=== PATIENT | male | born 1965 | race Two or more races ===

== ENCOUNTER 2025-01-04 18:40 | Inpatient (IN) | payer MEDICAID, OTHER ==
[~2025-01-04] VITALS: Ht 162.6 cm; Wt 98.2 kg
--- NOTE | 2025-01-04 18:59 | ED.PDOC ---
HPI Comments HPI: Poor Historian. 59-year-old male brought in by ambulance transferred from [facility] for evaluation of NSTEMI. Patient presented to the outside facility for midsternal chest pain radiating to the left upper extremity that started this morning. Patient was found with new onset of atrial fibrillation with RVR heart rate was in the 160s. Patient was given diltiazem 20 mg IV which converted him to normal sinus. Pr transfer physician Dr. VOGEL, she said patient's troponin was 0.05 than 0.13 than 0.26 which is elevated. They are cut off normal is 0.04. They spoke with the issue clerk Dr. Turner who recommended to transfer the patient. Patient was given heparin 5000 units and aspirin prior to arrival. They contacted us and accepted the transfer to our facility. Upon arrival to our facility. Patient was evaluated. He denies any active chest pain or any acute complaints. Past Medical History: Hypertension, gout, new onset atrial fibrillation with RVR earlier today. Past Surgical History: REVIEW OF SYSTEMS: CONSTITUTIONAL: Denies acute: fever, diaphoresis, chills, generalized weakness. HEAD: Denies acute: headache, photophobia Eyes: Denies acute: Double vision, vision loss, eye pain, eye discharge. EARS: Denies acute: tinnitus, hearing loss, ear discharge, ear pain, THROAT: Denies acute: sore throat, swelling, difficulty swallowing , pain with swallowing, change in voice. NECK: Denies acute: neck pain, neck swelling, stiff neck. HEART: Denies acute : palpitations, LUNGS: Denies acute: SOB, wheezing, cough, hemoptysis ABDOMEN: Denies acute: abdominal pain, Nausea, Vomiting, diarrhea, melena , hematemesis, hematochezia SKIN: Denies acute: rash, redness, lesions, itchiness. EXTREMITIES: Denies acute: calf pain, numbness, tingling, weakness, denies pain in extremity. Denies acute: Low back pain. Neuro: Denies acute: focal neurological deficit, motor or sensory focal neurological deficit, tremors, seizure like activity, confusion, dizziness, change in mental status, loss of bowel or bladder function, cauda equina like symptoms. : Denies acute: dysuria, hematuria, flank pain, increase in urinary frequency. PSYCH: Denies acute: hallucination, suicidal ideation, homicidal ideation. PHYSICAL EXAM: General: ---no-----acute distress, awake and alert. Head: normocephalic, atraumatic. Neck: supple, trachea is midline, no swelling. Throat: Normal phonation. Eyes:, no erythema, no purulent discharge, no proptosis, no icterus. Heart: regular rate, regular rhythm, no significant murmur appreciated. Lungs: no apparent respiratory distress, Able to speak in full sentences. No wheezing, no rhonchi, no crackles. No stridors Clear to auscultation bilaterally. Abdomen: non tender to palpation, non distended, soft, no guarding, no rebound, + bowel sounds. Neuro: Awake, Alert, oriented to name, self, situation, follows commands GCS=15. Speech is normal. Skin: no petechia, no purpura, no cyanosis, non-pale, not jaundice. Lower extremities: --trace bilateral - Pitting edema no deformity, no focal swelling, no calf TTP. Makes eye contact. moves all four extremities. Face: no apparent facial droop. ED COURSE: DISCLAIMER: This medical document was created using an electronic medical record system with voice recognition software and computerized dictation system. Although this document has been carefully reviewed, there might still be some phonetic and typographical errors. Occasional wrong-word or "sound-alike" substitutions may have occurred due to the inherent limitations of voice recognition software. These areas are purely typographical due to imperfections of the software programs and do not reflect any compromise in the patient's medical care. Please read the chart carefully and recognize, using context, where these substitutions have occurred. Chief Complaint: Chest Pain Time Seen by MD: 18:46 Reviewed Notes: Allergies Allergies: Coded Allergies: NO KNOWN ALLERGIES (Unverified , 01/04/25) Home Meds Active Scripts Apixaban Base (ELIQUIS) 5 Mg Tab, 5 MG PO BID for 30 Days, #60 TAB 4 Refills Prov:LASHELL NINO DO 01/08/25 Losartan Potassium (Losartan Potassium) 50 Mg Tab, 100 MG PO DAILY for 30 Days, #60 TAB 3 Refills Prov:NINOLASHELL Bañuelos DO 01/08/25 Carvedilol (COREG) 3.125 Mg Tab, 6.25 MG PO Q12HR for 30 Days, #120 TAB 3 Refills Prov:LASHELL NINO DO 01/08/25 Atorvastatin Calcium (ATORVASTATIN CALCIUM) 20 Mg Tab, 20 MG PO HS for 30 Days, #30 TAB 3 Refills Prov:LASHELL NINO DO 01/08/25 Allopurinol (ZYLOPRIM TABLET) 100 Mg Tb, 300 MG PO DAILY for 30 Days, #90 TAB 6 Refills Prov:LASHELL NINO DO 01/08/25 Reported Medications Allopurinol (Allopurinol) 300 Mg Tab, 1 TAB PO DAILY 01/04/25 Atorvastatin Calcium (ATORVASTATIN CALCIUM) 40 Mg Tab, 1 TAB PO DAILY 01/04/25 Aspirin (Aspirin Low Dose) 81 Mg Tab, 1 TAB PO DAILY 01/04/25 Furosemide (Furosemide) 40 Mg Tab, 1 TAB PO DAILY 01/04/25 Losartan Potassium (Losartan Potassium) 100 Mg Tab, 1 TAB PO DAILY 01/04/25 Carvedilol (Carvedilol) 6.25 Mg Tab, 1 TAB PO BID 01/04/25 Information Source: Patient Was a procedure done? Was a procedure done?: No CP Differential Dx Differential Diagnosis: A-fib, A-Flutter, Angina, Digoxin Toxicity, Electrolyte Disorder, Heart Failure, Hyperthyroidism, Hyperventilation, Hypoxia, MAT, WI, PAC's, PSVT, Pulmonary Embolus, PVC's, Renal Failure, Sinus Tachycardia, Torsades De Pointes, Ventricular Dysrhythmia, V-Fib, V-Tach Differential Diagnosis: Other (Ddx include but not limitied to gastritis, musculoskeletal pain, radiculopathy, atypical chest pain, dissection, aneurysm, ACS, unstable angina, hiatal hernia, GERD, anxiety, costochondritis, PE, pneumothroax, neoplasm, cardiac ischemia, drug abuse, anemia.) X-Ray, Labs, Meds, VS Vital Signs Date Time Temp Pulse Resp B/P (MAP) Pulse Ox O2 Delivery O2 Flow Rate FiO2 01/04/25 21:28 85 01/04/25 20:17 86 01/04/25 19:30 Room Air* 0 21 01/04/25 19:30 97.8 85 17 153/93 (113) 95 97.8 01/04/25 18:56 80 01/04/25 18:50 97.3 75 16 169/109 97 97.3 01/04/25 18:45 Room Air* 0 21 01/04/25 18:45 98.0 88 17 147/85 (105) 97 98.0 Lab Test 01/04/25 19:43 01/04/25 18:50 Range/Units Troponin I High Sensitivity 443 *H 447 *H </=54 ng/L White Blood Count 6.3 4.4-10.8 10^3/uL Red Blood Count 5.50 4.5-5.90 10^6/uL Hemoglobin 15.7 13.5-17.5 g/dL Hematocrit 47.1 41.0-53.0 % Mean Corpuscular Volume 85.7 80.0-100.0 fL Mean Corpuscular Hemoglobin 28.6 28.0-32.0 pg Mean Corpuscular Hemoglobin Concent 33.4 32.0-36.0 g/dL Red Cell Distribution Width 14.5 H 11.8-14.3 % Platelet Count 218 140-450 10^3/uL Mean Platelet Volume 8.4 6.9-10.8 fL Neutrophils (%) (Auto) 61.7 37.0-80.0 % Lymphocytes (%) (Auto) 27.6 10.0-50.0 % Monocytes (%) (Auto) 7.6 0.0-12.0 % Eosinophils (%) (Auto) 2.4 0.0-7.0 % Basophils (%) (Auto) 0.7 0.0-2.0 % Neutrophils # (Auto) 3.9 1.6-8.6 10 ^3/uL Lymphocytes # (Auto) 1.7 0.4-5.4 10 ^3/uL Monocytes # (Auto) 0.5 0-1.3 10 ^3/uL Eosinophils # (Auto) 0.2 0-0.8 10 ^3/uL Basophils # (Auto) 0 0-0.2 10 ^3/uL Nucleated Red Blood Cells 0.1 % Sodium Level 142 136-145 mmol/L Potassium Level 4.2 3.5-5.1 mmol/L Chloride Level 105 98-107 mmol/L Carbon Dioxide Level 27 20-31 mmol/L Anion Gap 10 5-15 Blood Urea Nitrogen 17 9-23 mg/dL Creatinine 1.40 H 0.700-1.30 mg/dL Glomerular Filtration Rate Calc 57 >90 mL/min BUN/Creatinine Ratio 12.1 10.0-20.0 Serum Glucose 98 74-106 mg/dL Calcium Level 9.2 8.7-10.4 mg/dL Magnesium Level 2.1 1.6-2.6 mg/dL Total Bilirubin 0.8 0.2-1.0 mg/dL Aspartate Amino Transferase (AST) 24 13-40 U/L Alanine Aminotransferase (ALT) 26 7-40 U/L Alkaline Phosphatase 82 46-116 U/L B-Type Natriuretic Peptide 121.26 0-100 pg/mL Total Protein 7.4 5.7-8.2 g/dL Albumin 4.3 3.2-4.8 g/dL [place] [id number] Ph: [phone] DIAGNOSTIC IMAGING Diagnostic Imaging Report : [id number] Signed PATIENT: MICHAEL MERLOSEACCT: [id number] UNIT: [id number] : 1965 LOC: ER ROOM / BED: / AGE / SEX: 59 / M ADM STATUS: REG ER SERVICE 185 ORDERING PHYSICIAN: RUBEN SKINNER DO PROCEDURE(s): CXRP - CHEST PORTABLE REASON: cp ORDER NUMBER(s): [id number], ACCESSION NUMBER(s): [id number] CHEST RADIOGRAPH Indication: cp Technique: Single frontal view of the chest was obtained Comparison: XR CHEST 1 VIEW on DOS: 01/04/25 FINDINGS: Lines and Tubes: None Lungs: No focal consolidation. Pleura: No effusion. No pneumothorax. Cardiomediastinal contours: Unremarkable Bones: No acute osseous abnormality. IMPRESSION: 1. No acute cardiopulmonary disease. ATED BY: ELDER ENLGISH Jr., DO DICTATED DATE/TIME: 01/04/251923 SIGNED BY: ELDER ENGLISH Jr., DO SIGNED DATE/TIME: 01/04/251923 CC: Time of 1ST Reevaluation: 00:00 Reevaluation 1ST: N/A Patient Education/Counseling: Diagnosis, Treatment Family Education/Counseling: Other Comments MDM: patient presented with the above HPI.---cardiac---workup was initiated. patient was found with the above mentioned diagnosis. the following medications were ordered: please refer to order lists of meds and tests obtained by myself Dr. Skinner. Patient ED course and VS have been stabilized. Patient has been reassessed in the ED and remained in a stable condition. Pertinent incidental findings were discussed with the patient and/or family. Patient/family voices understanding and is agreeable with plan. Patient has been observed in the ED adequate length of time to insure improvement/stability. Escalation of care considered: Consideration of escalation to observation or admission Patient transferred to our facility for NSTEMI and new onset atrial fibrillation.. Cardiology consult was placed. Patient was ADMITTED to the medicine team for further evaluation and treatment of their presentation. All the reports of any imaging studies that were ordered by myself were reviewed by myself. Departure 1 Departure Time of Disposition: 18:56 Impression: Primary Impression: NSTEMI (non-ST elevated myocardial infarction) Additional Impression: New onset atrial fibrillation Disposition: ADMITTED INPATIENT Admit to: Tele Condition: Guarded e-Prescriptions Apixaban Base (ELIQUIS) 5 Mg Tab 5 MG PO BID for 30 Days, #60 TAB 4 Refills Prov: LASHELL NINO DO 01/08/25 Losartan Potassium (Losartan Potassium) 50 Mg Tab 100 MG PO DAILY for 30 Days, #60 TAB 3 Refills Prov: NINOLASHELL Bañuelos DO 01/08/25 Carvedilol (COREG) 3.125 Mg Tab 6.25 MG PO Q12HR for 30 Days, #120 TAB 3 Refills Prov: LASHELL NINO DO 01/08/25 Atorvastatin Calcium (ATORVASTATIN CALCIUM) 20 Mg Tab 20 MG PO HS for 30 Days, #30 TAB 3 Refills Prov: LASHELL NINO DO 01/08/25 Allopurinol (ZYLOPRIM TABLET) 100 Mg Tb 300 MG PO DAILY for 30 Days, #90 TAB 6 Refills Prov: LASHELL NINO DO 01/08/25 Discharged With: Self Critical Care Note Critical Care Time?: Yes (1 hr-critical care time only) Heart Score Heart Score: Heart Score Response (Comments) Value History Moderate Suspicious [address]-Deviation 2 Age 45-64 1 Risk Factors 1 or 2 risk factors 1 Troponin >3 x's Normal limit 2 Total 7 RUBEN SKINNER DO Jan 04, 2025 18:59
[2025-01-04 19:07] LABS: Hematocrit 47.1 % (41.0-53.0); Hemoglobin 15.7 g/dL (13.5-17.5); Mean Corpuscular Hemoglobin 28.6 pg (28.0-32.0); Mean Corpuscular Volume 85.7 fL (80.0-100.0); Nucleated Red Blood Cells % 0.1 %
--- NOTE | 2025-01-04 19:14 | ECG ---
[facility] Test Date: 2025-01-04 Test Time: 18:56:50 Pat Name: MICHAEL MERLOS Department: Room: 0297T Gender: M Practice Administrator: AUDI : 1965 Requested By: RUBEN SKINNER Order Number: [id number] Reading MD: Paul Moore Measurements Intervals [place] Rate: 80 P: 53 AL: 150 QRS: 58 QRSD: 90 T: 59 QT: 385 QTc: 445 Interpretive Statements Sinus rhythm Electronically Signed On 01-11-2025 20:18:11 PDT by Paul Moore Please click the below link to view image of tracing.
[2025-01-04 19:24] LABS: Alanine Aminotransferase 26 U/L (7-40); Albumin 4.3 g/dL (3.2-4.8); Alkaline Phosphatase 82 U/L (46-116); Anion Gap 10 (5-15); BUN/Creatinine Ratio 12.1 (10.0-20.0); Blood Urea Nitrogen 17 mg/dL (9-23); Calcium 9.2 mg/dL (8.7-10.4); Carbon Dioxide 27 mmol/L (20-31); Chloride 105 mmol/L (98-107); Glucose 98 mg/dL (74-106); Magnesium 2.1 mg/dL (1.6-2.6); Potassium 4.2 mmol/L (3.5-5.1); Sodium 142 mmol/L (136-145); Total Protein 7.4 g/dL (5.7-8.2)
[2025-01-04 19:25] LABS: Bilirubin, Total 0.8 mg/dL (0.2-1.0)
--- NOTE | 2025-01-04 19:26 | DVH ---
CHEST RADIOGRAPH Indication: cp Technique: Single frontal view of the chest was obtained Comparison: XR CHEST 1 VIEW on DOS: 01/04/25 FINDINGS: Lines and Tubes: None Lungs: No focal consolidation. Pleura: No effusion. No pneumothorax. Cardiomediastinal contours: Unremarkable Bones: No acute osseous abnormality. IMPRESSION: 1. No acute cardiopulmonary disease.
[2025-01-04] MEDS: ENOXAPARIN SOD 100 MG/1 ML SYRINGE SC ONE (20:33)
--- NOTE | 2025-01-04 21:40 | DVHHP2 ---
History of Present Illness Reason for Visit: NSTEMI (non-ST elevated myocardial infarction) History of Present Illness The patient is a 59-year-old male with past medical history of AFib, gout, and hypertension who presented to [facility] ED from [facility] for evaluation of NSTEMI. Patient presented to the outside facility for midsternal chest pain radiating to the left upper extremity that started this morning. Patient was found with new onset of atrial fibrillation with RVR heart rate in the 160s. Patient was given diltiazem 20 mg IV which converted to normal sinus rhythm. Patient was given heparin 5000 units and aspirin prior to arrival. Patient was seen and evaluated in the ED, laboratory data shows WBC 6.3, platelets 218, sodium 142, potassium 4.2, BUN 17, creatinine 1.40, GFR 57, glucose 98, calcium 9.2, troponin 443, blood pressure 169/109, heart rate 75, temperature 97.4 F, O2 saturation 97% on oxygen. Chest x-ray show no acute cardiopulmonary disease. Please see medication orders section in the computer. On my assessment, patient denied chest pain at this moment, no headache, no dizziness, no diaphoresis, currently on oxygen, no diarrhea, no nausea, no vomiting, no fever, chills. Patient was admitted for further evaluation and medical management. Past Medical History HTN, Gout, AFib Past Surgical History Denies all surgeries Family History Reviewed, noncontributory to the management of this case. Past Social History The patient lives at home, denies smoking, alcohol or illicit drugs abuse. Review of Systems Constitutional: Yes: Weakness; No: Fever, Chills, Sweats, Malaise, Other Eyes: No: Pain, Vision change, Conjunctivae inflammation, Eyelid inflammation, Other, Redness ENT: No: Ear pain, Ear discharge, Nose pain, Nose discharge, Nose congestion, Mouth pain, Mouth swelling, Throat pain, Throat swelling, Other Respiratory: No: Cough, Dry, Shortness of breath, SOB with excertion, Wheezing, Hemoptysis, Pleuritic Pain, Sputum, Wheezing, Other Cardiovascular: No: Chest Pain, Palpitations, Orthopnea, Paroxysmal Noc. Dyspnea, Edema, Lt Headedness, Other Gastrointestinal: No: Nausea, Vomiting, Abdominal Pain, Diarrhea, Constipation, Melena, Hematochezia, Other Genitourinary: No Dysuria, No Frequency, No Incontinence, No Hematuria, No Retention, No Other Musculoskeletal: No: other, neck pain, shoulder pain, arm pain, back pain, hand pain, leg pain, foot pain Skin: No: Rash, Lesions, Jaundice, Bruising, Other Neurological: No: Weakness, Numbness, Incoordination, Change in speech, Confusion, Seizures, Other Allergies: Coded Allergies: NO KNOWN ALLERGIES (Unverified , 01/04/25) Exam Vital Signs Vital Signs Date Time Temp Pulse Resp B/P (MAP) Pulse Ox O2 Delivery O2 Flow Rate FiO2 01/04/25 19:30 Room Air* 0 21 01/04/25 19:30 97.8 85 17 153/93 (113) 95 97.8 General Appearance: Alert, Oriented X3, Cooperative, No acute distress HEENT: Atraumatic, PERRLA, EOMI, Mucous membr. moist/pink Respiratory: Normal air movement Cardiovascular: Regular rate, Normal S1, Normal S2, No murmurs Abdominal: Normal bowel sounds, Soft, No tenderness, No hepatospenomegaly, No masses Extremities: No clubbing, No cyanosis, No edema, Normal pulses, No tenderness/swelling Skin: No rashes, No breakdown, No significant lesion Neuro: Normal speech, Normal tone, Sensation intact, Cranial nerves 3-12 NL, Reflexes 2+, Other (Generalized weakness) Psych/Mental Status: Mental status NL, Mood NL Labs/Xrays Labs Test 01/04/25 19:43 01/04/25 18:50 Range/Units Troponin I High Sensitivity 443 *H </=54 ng/L White Blood Count 6.3 4.4-10.8 10^3/uL Red Blood Count 5.50 4.5-5.90 10^6/uL Hemoglobin 15.7 13.5-17.5 g/dL Hematocrit 47.1 41.0-53.0 % Mean Corpuscular Volume 85.7 80.0-100.0 fL Mean Corpuscular Hemoglobin 28.6 28.0-32.0 pg Mean Corpuscular Hemoglobin Concent 33.4 32.0-36.0 g/dL Red Cell Distribution Width 14.5 H 11.8-14.3 % Platelet Count 218 140-450 10^3/uL Mean Platelet Volume 8.4 6.9-10.8 fL Neutrophils (%) (Auto) 61.7 37.0-80.0 % Lymphocytes (%) (Auto) 27.6 10.0-50.0 % Monocytes (%) (Auto) 7.6 0.0-12.0 % Eosinophils (%) (Auto) 2.4 0.0-7.0 % Basophils (%) (Auto) 0.7 0.0-2.0 % Neutrophils # (Auto) 3.9 1.6-8.6 10 ^3/uL Lymphocytes # (Auto) 1.7 0.4-5.4 10 ^3/uL Monocytes # (Auto) 0.5 0-1.3 10 ^3/uL Eosinophils # (Auto) 0.2 0-0.8 10 ^3/uL Basophils # (Auto) 0 0-0.2 10 ^3/uL Nucleated Red Blood Cells 0.1 % Sodium Level 142 136-145 mmol/L Potassium Level 4.2 3.5-5.1 mmol/L Chloride Level 105 98-107 mmol/L Carbon Dioxide Level 27 20-31 mmol/L Anion Gap 10 5-15 Blood Urea Nitrogen 17 9-23 mg/dL Creatinine 1.40 H 0.700-1.30 mg/dL Glomerular Filtration Rate Calc 57 >90 mL/min BUN/Creatinine Ratio 12.1 10.0-20.0 Serum Glucose 98 74-106 mg/dL Calcium Level 9.2 8.7-10.4 mg/dL Magnesium Level 2.1 1.6-2.6 mg/dL Total Bilirubin 0.8 0.2-1.0 mg/dL Aspartate Amino Transferase (AST) 24 13-40 U/L Alanine Aminotransferase (ALT) 26 7-40 U/L Alkaline Phosphatase 82 46-116 U/L Total Protein 7.4 5.7-8.2 g/dL Albumin 4.3 3.2-4.8 g/dL PATIENT: MICHAEL MERLOSSIMIT: [id number] UNIT: [id number] : 1965 LOC: ER ROOM / BED: / AGE / SEX: 59 / M ADM STATUS: REG ER SERVICE 0110 ORDERING PHYSICIAN: RUBEN SKINNER DO PROCEDURE(s): CXRP - CHEST PORTABLE REASON: cp ORDER NUMBER(s): [id number], ACCESSION NUMBER(s): [id number] CHEST RADIOGRAPH Indication: cp Technique: Single frontal view of the chest was obtained Comparison: XR CHEST 1 VIEW on DOS: 01/04/25 FINDINGS: Lines and Tubes: None Lungs: No focal consolidation. Pleura: No effusion. No pneumothorax. Cardiomediastinal contours: Unremarkable Bones: No acute osseous abnormality. IMPRESSION: 1. No acute cardiopulmonary disease. SEPSIS Sepsis Screen Date sepsis recognized/suspect: Jan 04, 2025 Time Sepsis recognized/suspect: 1929 Recent Procedure: No On Antibiotic Therapy: No Respiratory Rate >20: No Heart Rate >90: No Temp<36 C (96.8 F) or >38.3 C: No SBP <90 or MAP <65 mmHG: No New Acute Mental Status Change: No Is the patient on CPAP, BIPAP,: No Physician Orders Urinalysis (01/04/25 18:45) Mask Design Engineer (01/04/25 ) Chest Portable (01/04/25 18:50) Troponin-I Hs (01/04/25 10:35) Electrocardigram (01/04/25 10:35) Electrocardigram (01/04/25 12:35) * Cardiology Consult (01/04/25 18:56) Enoxaparin Sodium (Lovenox) (01/04/25 22:00) Losartan Tablet (Cozaar Tablet) (01/05/25 10:00) Atorvastatin (Lipitor) (01/04/25 22:00) Carvedilol Tablet (Coreg Tablet) (01/04/25 22:00) B-Type Natriuretic Peptide (01/04/25 21:31) Hydralazine Injection (Apresoline Inject (01/04/25 21:45) Allopurinol Tablet (Zyloprim Tablet) (01/05/25 10:00) Vital Signs Date Time Temp Pulse Resp B/P (MAP) Pulse Ox O2 Delivery O2 Flow Rate FiO2 01/04/25 19:30 Room Air* 0 21 01/04/25 19:30 97.8 85 17 153/93 (113) 95 97.8 01/04/25 18:56 80 01/04/25 18:50 97.3 75 16 169/109 97 97.3 01/04/25 18:45 Room Air* 0 21 01/04/25 18:45 98.0 88 17 147/85 (105) 97 98.0 Laboratory Tests Test 01/04/25 18:50 White Blood Count 6.3 10^3/uL (4.4-10.8) Medications Medications Dose Ordered Sig/Mana Route Start Time Stop Time Status Last Admin Dose Admin Enoxaparin Sodium 100 mg ONCE ONCE SC 01/04/25 20:30 01/04/25 20:31 DC 01/04/25 20:33 100 MG Assessment/Plan Assessment/Plan NSTEMI (non-ST elevated myocardial infarction) New onset atrial fibrillation Generalized weakness Plan 1. Admit to telemetry unit 2. Breathing treatment 3. Pain control management 4. Management of fluids and electrolytes 5. Consultation for Cardiology 6. Diagnostic tests-chest x-ray 7. DVT prophylaxis-on Lovenox 8. Repeat labs CBC, CMP in a.m. 9. Continue with current medical management 10. Treatment plan discussed with patient and RN. Patient verbalized understanding. Plan discussed with: Patient, Other (RN) My Orders Orders - MADHAV GRIFFITHS DNP Procedure Category Date Status Time Enoxaparin Sodium PHA 01/04/25 Verified (Lovenox) 22:00 Losartan Tablet PHA 01/05/25 Verified (Cozaar Tablet) 10:00 Atorvastatin (Lipitor) PHA 01/04/25 Verified 22:00 Carvedilol Tablet PHA 01/04/25 Verified (Coreg Tablet) 22:00 B-Type Natriuretic LAB 01/04/25 Verified Peptide 21:31 Hydralazine Injection PHA 01/04/25 Verified (Apresoline Inject 21:45 Allopurinol Tablet PHA 01/05/25 Verified (Zyloprim Tablet) 10:00 Problem List: (1) NSTEMI (non-ST elevated myocardial infarction) (2) New onset atrial fibrillation (3) Generalized weakness Date of Service: Jan 04, 2025 Billing Provider: MADHAV GRIFFITHS DNP Common Visit Codes: [id number] INP/OBS CARE (HIGH) MADHAV GRIFFITHS DNP Jan 04, 2025 21:40
[2025-01-04] MEDS ORDERED: HYDROcodone-ACET 5/325MG TAB PO PRN (21:45)
[2025-01-04] MEDS ORDERED: NITROGLYCERIN 0.4 MG SL TAB SL PRN (21:45)
[2025-01-04] MEDS ORDERED: DOCUSATE SOD 100 MG CAP PO PRN (21:45)
[2025-01-04] MEDS ORDERED: MORPHINE SULFATE INJ 2 MG/ml SYRG IV PRN ×2 (21:45)
[2025-01-04] MEDS ORDERED: ONDANSETRON HCL 4 MG/2 ML VIAL IV PRN (21:45)
[2025-01-04] MEDS: SODIUM CHLOR 0.9% PF (SALINE LOCK) 10ML VIAL/SYR IV SCH (22:00)
[2025-01-04] MEDS: ATORVASTATIN 20 MG TAB PO SCH (22:37)
[2025-01-04] MEDS: CARVEDILOL 3.125 MG TAB PO SCH (22:37)
--- NOTE | 2025-01-04 23:50 | DVHINCON2 ---
Date of service: Jan 04, 2025 Referring Physician Chandrika Reason for Consultation NSTEMI History of Present Illness This is a 59-year-old male with a PMH of Hypertension, gout, new onset atrial fibrillation with RVR earlier today who was transferred to [facility] from [facility] for evaluation of NSTEMI. Patient presented to the outside facility for midsternal chest pain radiating to the left upper extremity that started this morning. Patient was found with new onset of atrial fibrillation with RVR heart rate was in the 160s. Patient was given diltiazem 20 mg IV which converted him to normal sinus. Per transferring physician Dr. Luz, she said patient's troponin was 0.05 than 0.13 than 0.26 which is elevated. They are cut off normal is 0.04. [facility] spoke with manager camp Dr. Turner who recommended to transfer the patient. Patient was given heparin 5000 units and aspirin prior to arrival. They contacted us and accepted the transfer to our facility. TROP 447, 443, 477. Chest x-ray showed NAD.Patient was admitted to the hospital. I am asked to consult on this patient. Allergies: Coded Allergies: NO KNOWN ALLERGIES (Unverified , 01/04/25) Current Medications Current Medications Medications (Trade) Dose Ordered Sig/Mana Route PRN Reason Start Time Stop Time Status Last Admin Enoxaparin Sodium (Lovenox) 90 mg Q12HR SC 01/05/25 10:00 Losartan Potassium (Cozaar Tablet) 100 mg DAILY PO 01/05/25 10:00 Atorvastatin Calcium (Lipitor) 20 mg HS PO 01/04/25 22:00 01/04/25 22:37 Carvedilol (Coreg Tablet) 6.25 mg Q12HR PO 01/04/25 22:00 01/04/25 22:37 Hydralazine HCl (Apresoline Injection) 10 mg Q6HP PRN IV SBP>150 01/04/25 21:45 Allopurinol (Zyloprim Tablet) 300 mg DAILY PO 01/05/25 10:00 Sodium Chloride (Saline Lock Ns) 10 ml Q8HR IV 01/04/25 22:00 01/04/25 22:00 Acetaminophen/ Hydrocodone Bitart (Julian 5/325MG Tab) 1 tab Q4HP PRN PO MODERATE PAIN (4-6 PAIN SCALE) 01/04/25 21:45 Ondansetron HCl (Zofran) 4 mg Q4HP PRN IV NAUSEA / VOMITING 01/04/25 21:45 Docusate Sodium (Colace Capsule) 100 mg BIDPRN PRN PO FOR CONSTIPATION 01/04/25 21:45 Acetaminophen (Tylenol Tablet) 650 mg Q6HP PRN PO PAIN SCALE 1-3 OR TEMP>100.4 01/04/25 21:45 Morphine Sulfate 2 mg Q4HPRN PRN IV SEVERE PAIN (7-10 PAIN SCALE) 01/04/25 21:45 Nitroglycerin (Ntrostat Sublingual) 0.4 mg Q5MINP PRN SL FOR CHEST PAIN 01/04/25 21:45 Morphine Sulfate 2 mg Q30M PRN IV FOR CHEST PAIN 01/04/25 21:45 Review of Systems CONSTITUTIONAL: Denies acute: fever, diaphoresis, chills, generalized weakness. HEAD: Denies acute: headache, photophobia Eyes: Denies acute: Double vision, vision loss, eye pain, eye discharge. EARS: Denies acute: tinnitus, hearing loss, ear discharge, ear pain, THROAT: Denies acute: sore throat, swelling, difficulty swallowing , pain with swallowing, change in voice. NECK: Denies acute: neck pain, neck swelling, stiff neck. HEART: Denies acute : palpitations, LUNGS: Denies acute: SOB, wheezing, cough, hemoptysis ABDOMEN: Denies acute: abdominal pain, Nausea, Vomiting, diarrhea, melena , hematemesis, hematochezia SKIN: Denies acute: rash, redness, lesions, itchiness. EXTREMITIES: Denies acute: calf pain, numbness, tingling, weakness, denies pain in extremity. Denies acute: Low back pain. Neuro: Denies acute: focal neurological deficit, motor or sensory focal neurological deficit, tremors, seizure like activity, confusion, dizziness, change in mental status, loss of bowel or bladder function, cauda equina like symptoms. : Denies acute: dysuria, hematuria, flank pain, increase in urinary frequency. PSYCH: Denies acute: hallucination, suicidal ideation, homicidal ideation. Vital Signs Vital Signs Date Time Temp Pulse Resp B/P (MAP) Pulse Ox O2 Delivery O2 Flow Rate FiO2 01/04/25 22:37 82 142/84 01/04/25 22:00 15 98 01/04/25 19:30 Room Air* 0 21 01/04/25 19:30 97.8 97.8 Physical Exam GENERAL: Alert and oriented x 3. No acute distress. EYES: PERRL, EOMI. Anicteric. HENT: Moist mucous membranes. LUNGS: Clear to auscultation bilaterally. CARDIOVASCULAR: Regular rate and rhythm. ABDOMEN: Soft, nontender and nondistended. EXTREMITIES: No edema. NEUROLOGIC: No focal neurological deficits. SKIN: Warm, dry. Labs/Diagnostic Data Labs Test 01/04/25 21:49 01/04/25 18:50 Range/Units Troponin I High Sensitivity 477 *H </=54 ng/L White Blood Count 6.3 4.4-10.8 10^3/uL Red Blood Count 5.50 4.5-5.90 10^6/uL Hemoglobin 15.7 13.5-17.5 g/dL Hematocrit 47.1 41.0-53.0 % Mean Corpuscular Volume 85.7 80.0-100.0 fL Mean Corpuscular Hemoglobin 28.6 28.0-32.0 pg Mean Corpuscular Hemoglobin Concent 33.4 32.0-36.0 g/dL Red Cell Distribution Width 14.5 H 11.8-14.3 % Platelet Count 218 140-450 10^3/uL Mean Platelet Volume 8.4 6.9-10.8 fL Neutrophils (%) (Auto) 61.7 37.0-80.0 % Lymphocytes (%) (Auto) 27.6 10.0-50.0 % Monocytes (%) (Auto) 7.6 0.0-12.0 % Eosinophils (%) (Auto) 2.4 0.0-7.0 % Basophils (%) (Auto) 0.7 0.0-2.0 % Neutrophils # (Auto) 3.9 1.6-8.6 10 ^3/uL Lymphocytes # (Auto) 1.7 0.4-5.4 10 ^3/uL Monocytes # (Auto) 0.5 0-1.3 10 ^3/uL Eosinophils # (Auto) 0.2 0-0.8 10 ^3/uL Basophils # (Auto) 0 0-0.2 10 ^3/uL Nucleated Red Blood Cells 0.1 % Sodium Level 142 136-145 mmol/L Potassium Level 4.2 3.5-5.1 mmol/L Chloride Level 105 98-107 mmol/L Carbon Dioxide Level 27 20-31 mmol/L Anion Gap 10 5-15 Blood Urea Nitrogen 17 9-23 mg/dL Creatinine 1.40 H 0.700-1.30 mg/dL Glomerular Filtration Rate Calc 57 >90 mL/min BUN/Creatinine Ratio 12.1 10.0-20.0 Serum Glucose 98 74-106 mg/dL Calcium Level 9.2 8.7-10.4 mg/dL Magnesium Level 2.1 1.6-2.6 mg/dL Total Bilirubin 0.8 0.2-1.0 mg/dL Aspartate Amino Transferase (AST) 24 13-40 U/L Alanine Aminotransferase (ALT) 26 7-40 U/L Alkaline Phosphatase 82 46-116 U/L B-Type Natriuretic Peptide 121.26 0-100 pg/mL Total Protein 7.4 5.7-8.2 g/dL Albumin 4.3 3.2-4.8 g/dL Assessment NSTEMI (non-ST elevated myocardial infarction). New onset atrial fibrillation. Generalized weakness. Plan/Recommendation I agree with your ongoing assessment and care of plan. Trend troponin. Morphine and [place] for pain management. Lipitor. Coreg, Losartan. DVT prophylactics. IV Hydralazine for SBP >150. Nitro SL. Additional plan as per the hospital course. A total of 45 minutes was spent reviewing the patient record, examining the patient, making a diagnostic and therapeutic plan, discussing this plan with medical personnel, following up on diagnostic studies and following the patient for clinical stability excluding any and all procedures. At least 50% of this time was spent in direct, [id number] contact. Plan discussed with: Patient SCOTTIECLARK Bañuelos MD Jan 04, 2025 23:35
[2025-01-04 23:53] VITALS: BP 166/105; PULSE 83; RESP 18; TEMP 97.8; O2SAT 98
[2025-01-04] MEDS ORDERED: ALLO300T2 PO (23:54)
[2025-01-04] MEDS ORDERED: ASPI-325 PO (23:54)
[2025-01-04] MEDS ORDERED: LOSA-535 PO (23:54)
[2025-01-04] MEDS ORDERED: CARV6.2551 PO (23:54)
[2025-01-04] MEDS ORDERED: FURO40TA4 PO (23:54)
[2025-01-04] MEDS ORDERED: ATOR40TA52 PO (23:54)
[2025-01-05] VITALS (8 sets, daily range): BP systolic 136–166; BP diastolic 74–105; PULSE 72–86; RESP 16–18; TEMP 97.8–98.3; O2SAT 97–99
[2025-01-05] MEDS: hydrALAZINE HCL 20 MG/ML VL IV PRN (00:46)
[2025-01-05 07:15] LABS: Urine Protein, UAD Negative (Negative)
[2025-01-05 09:12] LABS: Hematocrit 44.8 % (41.0-53.0); Hemoglobin 15.1 g/dL (13.5-17.5); Mean Corpuscular Hemoglobin 28.7 pg (28.0-32.0); Mean Corpuscular Volume 85.3 fL (80.0-100.0); Nucleated Red Blood Cells % 0.1 %
[2025-01-05 09:28] LABS: Alanine Aminotransferase 27 U/L (7-40); Albumin 4.0 g/dL (3.2-4.8); Alkaline Phosphatase 74 U/L (46-116); Anion Gap 11 (5-15); BUN/Creatinine Ratio 15.8 (10.0-20.0); Bilirubin, Total 0.8 mg/dL (0.2-1.0); Blood Urea Nitrogen 21 mg/dL (9-23); Calcium 9.0 mg/dL (8.7-10.4); Carbon Dioxide 27 mmol/L (20-31); Chloride 106 mmol/L (98-107); Glucose 92 mg/dL (74-106); Potassium 3.9 mmol/L (3.5-5.1); Sodium 144 mmol/L (136-145); Total Protein 7.0 g/dL (5.7-8.2)
[2025-01-05] MEDS: ALLOPURINOL 100 MG TAB PO SCH (10:21)
[2025-01-05] MEDS: LOSARTAN POTASSIUM 50 MG TAB PO SCH (10:21)
[2025-01-05] MEDS: ENOXAPARIN SOD 100 MG/1 ML SYRINGE SC SCH (10:25)
--- NOTE | 2025-01-05 13:51 | ECG ---
[facility] Test Date: 2025-01-04 Test Time: 21:28:17 Pat Name: MICHAEL MERLOS Department: Room: 0297T A Gender: M Deicer Finisher: AUDI : 1965 Requested By: RUBEN SKINNER Order Number: [id number] Reading MD: Paul Moore Measurements Intervals [place] Rate: 85 P: 50 NC: 157 QRS: 71 QRSD: 93 T: 25 QT: 383 QTc: 456 Interpretive Statements Sinus rhythm Electronically Signed On 01-11-2025 20:19:00 PDT by Paul Moore Please click the below link to view image of tracing.
--- NOTE | 2025-01-05 16:53 | CONS ---
Pharmacy Clinical Information: PATIENT PREVIOUSLY ON ENOXAPARIN 90MG SC BID, LAST DOSE 01/05 APPROX. 1000 STAT APTT/CBC ORDERED, WILL SERVE BASELINE LABS INITIATE HEPARIN DRIP 01/05 @2000 AT RATE 1000 UNITS/HR (ACS PROTOCOL, PT WEIGHT 98.2KG), NO BOLUS DUE TO PRIOR ENOXAPARIN ANTICOAGULATION APTT DRAW SCHEDULED FOR 01/06 @0200 PER RX PROTOCOL JAKY GUERNI PHARMACIST Jan 05, 2025 16:53
[2025-01-05 17:01] LABS: Hematocrit 43.8 % (41.0-53.0); Hemoglobin 14.8 g/dL (13.5-17.5); Mean Corpuscular Hemoglobin 29.0 pg (28.0-32.0); Mean Corpuscular Volume 85.7 fL (80.0-100.0); Nucleated Red Blood Cells % 0.1 %
[2025-01-05 17:17] LABS: INR 1.01 (0.9-1.15); Partial Thromboplastin Time 33.9 SEC (24.5-34.5); Prothrombin Time 10.7 sec (9.3-11.8)
[2025-01-05] MEDS: HEPARIN DRIP/D5W 100UNITS/ML 250 ML IV SCH (20:35)
[2025-01-06] VITALS (10 sets, daily range): BP systolic 139–163; BP diastolic 92–111; PULSE 67–82; RESP 17–18; TEMP 97.8–98.4; O2SAT 96–98
--- NOTE | 2025-01-06 00:05 | DVHPN2 ---
Progress Note - Dictate Date Seen: Jan 05, 2025 Medical Necessity Reason Pt with a Central, PICC or Fol: No Subjective Patient was seen and evaluated in follow up. Patient is complaining of generalized pain. The patient is on heparin drip. Lumber Loader 1.33, troponin 435. Telemetry reviewed. vital signs Vital Sign Date Time Temp Pulse Resp B/P (MAP) Pulse Ox O2 Delivery O2 Flow Rate FiO2 01/05/25 13:00 97.8 82 17 142/95 (111) 98 97.8 01/04/25 23:53 Room Air* 0 21 Total Intake and Output 01/04/25 01/04/25 01/05/25 15:00 23:00 07:00 Intake Total 800 ml Balance 800 ml medications Current Medications Medications Dose Ordered Sig/Mana Route Start Time Stop Time Status Last Admin Dose Admin Enoxaparin Sodium 90 mg Q12HR SC 01/05/25 10:00 01/05/25 10:25 90 MG Losartan Potassium 100 mg DAILY PO 01/05/25 10:00 01/05/25 10:21 100 MG Atorvastatin Calcium 20 mg HS PO 01/04/25 22:00 01/04/25 22:37 20 MG Carvedilol 6.25 mg Q12HR PO 01/04/25 22:00 01/05/25 10:22 6.25 MG Hydralazine HCl 10 mg Q6HP PRN IV 01/04/25 21:45 01/05/25 00:46 10 MG Allopurinol 300 mg DAILY PO 01/05/25 10:00 01/05/25 10:21 300 MG Sodium Chloride 10 ml Q8HR IV 01/04/25 22:00 01/05/25 05:47 10 ML Acetaminophen/ Hydrocodone Bitart 1 tab Q4HP PRN PO 01/04/25 21:45 Ondansetron HCl 4 mg Q4HP PRN IV 01/04/25 21:45 Docusate Sodium 100 mg BIDPRN PRN PO 01/04/25 21:45 Acetaminophen 650 mg Q6HP PRN PO 01/04/25 21:45 Morphine Sulfate 2 mg Q4HPRN PRN IV 01/04/25 21:45 Nitroglycerin 0.4 mg Q5MINP PRN SL 01/04/25 21:45 Morphine Sulfate 2 mg Q30M PRN IV 01/04/25 21:45 objective GENERAL: Alert and oriented x 3. No acute distress. EYES: PERRL, EOMI. Anicteric. HENT: Moist mucous membranes. LUNGS: Clear to auscultation bilaterally. CARDIOVASCULAR: Regular rate and rhythm. ABDOMEN: Soft, nontender and nondistended. EXTREMITIES: No edema. NEUROLOGIC: No focal neurological deficits. SKIN: Warm, dry. laboratory and microbiology Laboratory Tests 01/05/25 06:55 Test 01/05/25 06:55 Range/Units Serum Glucose 92 74-106 mg/dL Problem List NSTEMI (non-ST elevated myocardial infarction). New onset atrial fibrillation. Generalized weakness. Assessment/Plan Continued all current supportive medical care. Morphine and [place] for pain management. Lipitor. Coreg, Losartan. Heparin drip per pharmacy. IV Hydralazine for SBP >150. Nitro SL. Additional plan as per the hospital course. Plan discussed with: Patient CLARK RUBIN MD Jan 05, 2025 14:33
[2025-01-06] MEDS: MELATONIN 5 MG TAB PO SCH (02:12)
[2025-01-06 02:19] LABS: Hematocrit 45.3 % (41.0-53.0); Hemoglobin 15.2 g/dL (13.5-17.5); Mean Corpuscular Hemoglobin 29.0 pg (28.0-32.0); Mean Corpuscular Volume 86.4 fL (80.0-100.0); Nucleated Red Blood Cells % 0.1 %
[2025-01-06 02:31] LABS: INR 1.03 (0.9-1.15); Partial Thromboplastin Time 47.4 SEC (24.5-34.5); Prothrombin Time 10.9 sec (9.3-11.8)
[2025-01-06] MEDS: HEPARIN DRIP/D5W 100UNITS/ML 250 ML IV SCH (02:59)
[2025-01-06] MEDS: ACETAMINOPHEN 325 MG TAB PO PRN (09:07)
--- NOTE | 2025-01-06 10:02 | ECG ---
[facility] Test Date: 2025-01-04 Test Time: 20:17:36 Pat Name: MICHAEL MERLOS Department: Room: 0297T A Gender: M Physician Practice Manager: : 1965 Requested By: RUBEN SKINNER Order Number: [id number] Reading MD: Paul Moore Measurements Intervals [place] Rate: 86 P: 62 AR: 151 QRS: 57 QRSD: 89 T: 79 QT: 380 QTc: 455 Interpretive Statements Sinus rhythm Electronically Signed On 01-11-2025 20:18:41 PDT by Paul Moore Please click the below link to view image of tracing.
[2025-01-06 11:18] LABS: INR 1.03 (0.9-1.15); Partial Thromboplastin Time 63.4 SEC (24.5-34.5); Prothrombin Time 10.9 sec (9.3-11.8)
--- NOTE | 2025-01-06 11:29 | CONS ---
Pharmacy Clinical Information: HEPARIN DRIP, ACS PROTOCOL @1025 APTT 63.4 - NO BOLUS, NO CHANGE NEXT APTT DRAW SCHEDULED @1600 PER RX PROTOCOL CONFIRMED AND READ BACK WITH RN RAGHAV GUO [facility] RESIDENT Jan 06, 2025 11:29
[2025-01-06 16:34] LABS: INR 1.01 (0.9-1.15); Partial Thromboplastin Time 60.1 SEC (24.5-34.5); Prothrombin Time 10.7 sec (9.3-11.8)
--- NOTE | 2025-01-06 16:55 | CONS ---
Pharmacy Clinical Information: HEPARIN DRIP, ACS PROTOCOL @3377 APTT 60.1 - NO BOLUS, NO CHANGE NEXT APTT DRAW SCHEDULED @2200 PER RX PROTOCOL CONFIRMED AND READ BACK WITH RN RAGHAV GUO [facility] RESIDENT Jan 06, 2025 16:55
--- NOTE | 2025-01-06 21:21 | DVHPN2 ---
Reviewed: Care Plan, H&P, Labs, Medications, Previous Orders, Radiology Changes from previous H/P or p: No Changes General: Per HPI Eyes: No Pain, No Vision change, No Conjunctivae inflammation, No Eyelid inflammation, No Other, No Redness ENT: No Ear pain, No Ear discharge, No Nose pain, No Nose discharge, No Nose congestion, No Mouth pain, No Mouth swelling, No Throat pain, No Throat swelling, No Other Cardiovascular: No Chest Pain, No Palpitations, No Orthopnea, No Paroxysmal Noc. Dyspnea, No Edema, No Lt Headedness, No Other Respiratory: No Cough, No Dry, No Shortness of breath, No SOB with excertion, No Wheezing, No Hemoptysis, No Pleuritic Pain, No Sputum, No Other Gastrointestinal: No Nausea, No Vomiting, No Abdominal Pain, No Diarrhea, No Constipation, No Melena, No Hematochezia, No Other Genitourinary: No Dysuria, No Frequency, No Incontinence, No Hematuria, No Retention, No Other Musculoskeletal: No other, No neck pain, No shoulder pain, No arm pain, No back pain, No hand pain, No leg pain, No foot pain Skin: No Rash, No Lesions, No Jaundice, No Bruising, No Other Objective Vitals Vital Signs Date Time Temp Pulse Resp B/P (MAP) Pulse Ox O2 Delivery O2 Flow Rate FiO2 01/06/25 21:00 98.3 69 18 163/111 (128) 98 98.3 01/06/25 19:55 Room Air* 0 21 Intake/Output Intake and Output 01/06/25 07:00 Intake Total 1325 ml Balance 1325 ml Intake Oral 1325 ml # Voids 4 # Bowel Movements 1 General Appearance: Alert, Oriented X3, Cooperative HEENT: Atraumatic Cardiovascular: Normal S1, Normal S2 Neuro: Normal speech Medications Current Medications Medications Dose Ordered Sig/Mana Route Start Time Stop Time Status Last Admin Dose Admin Enoxaparin Sodium 90 mg Q12HR SC 01/05/25 10:00 Hold 01/05/25 10:25 90 MG Losartan Potassium 100 mg DAILY PO 01/05/25 10:00 01/06/25 09:03 100 MG Atorvastatin Calcium 20 mg HS PO 01/04/25 22:00 01/05/25 21:20 20 MG Carvedilol 6.25 mg Q12HR PO 01/04/25 22:00 01/06/25 09:01 6.25 MG Hydralazine HCl 10 mg Q6HP PRN IV 01/04/25 21:45 01/06/25 00:46 10 MG Allopurinol 300 mg DAILY PO 01/05/25 10:00 01/06/25 09:01 300 MG Sodium Chloride 10 ml Q8HR IV 01/04/25 22:00 01/06/25 14:28 10 ML Acetaminophen/ Hydrocodone Bitart 1 tab Q4HP PRN PO 01/04/25 21:45 Ondansetron HCl 4 mg Q4HP PRN IV 01/04/25 21:45 Docusate Sodium 100 mg BIDPRN PRN PO 01/04/25 21:45 Acetaminophen 650 mg Q6HP PRN PO 01/04/25 21:45 01/06/25 09:07 650 MG Morphine Sulfate 2 mg Q4HPRN PRN IV 01/04/25 21:45 Nitroglycerin 0.4 mg Q5MINP PRN SL 01/04/25 21:45 Morphine Sulfate 2 mg Q30M PRN IV 01/04/25 21:45 Melatonin 5 mg HS PO 01/06/25 02:00 01/06/25 02:12 5 MG Heparin Sodium/ Dextrose 250 ml @ 12 mls/hr [id number] IV 01/06/25 03:00 01/06/25 17:53 12 MLS/HR Laboratory Results Laboratory Tests 01/05/25 06:55 01/06/25 01:56 Coagulation Test 01/06/25 01:56 01/06/25 10:25 01/06/25 15:55 Prothrombin Time 10.9 sec (9.3-11.8) 10.9 sec (9.3-11.8) 10.7 sec (9.3-11.8) Prothrombin Time INR 1.03 (0.9-1.15) 1.03 (0.9-1.15) 1.01 (0.9-1.15) Activated Partial Thromboplast Time 47.4 SEC (24.5-34.5) H 63.4 SEC (24.5-34.5) H 60.1 SEC (24.5-34.5) H Urinalysis Test 01/05/25 06:28 Urine Color Light-yellow (Yellow) Urine Clarity Hazy (Clear) H Urine pH 5.5 (5.0-9.0) Urine Specific [place] 1.018 (1.001-1.035) Urine Protein Negative (Negative) Urine Ketones Negative (Negative) Urine Blood Negative /uL (Negative) Urine Nitrite Negative (Negative) Urine Bilirubin Negative (Negative) Urine Urobilinogen Normal mg/dL (Negative) Urine Leukocyte Esterase 3+ /uL (Negative) Urine RBC 4 /hpf (0 - 3) Urine Microscopic WBC 51 /HPF (0-3) H Urine Squamous Epithelial Cells Few /hpf (<5) Urine Bacteria Few /hpf (None Seen) H Urine Glucose Normal mg/dL (Normal) Microbiology Microbiology Date/Time Source Procedure Growth Status 01/05/25 01:15 Nose MRSA Screen - Final Complete Labs and/or images reviewed: Labs reviewed by me, Image(s) reviewed by me Assessment/Plan Assessment/Plan NSTEMI (non-ST elevated myocardial infarction) New onset atrial fibrillation Generalized weakness started on heparin drip cardiology on consult Plan discussed with: Patient My Orders Orders - LASHELL NINO DO Procedure Category Date Status Time Heparin Drip/D5w PHA 01/06/25 In Process 100units/Ml 03:00 Complete Blood Count LAB 01/07/25 Verified 04:00 Heparin Per Pharmacy [facility]EN[facility] 01/06/25 In Process Protocol 11:29 PTPTT LAB 01/06/25 Logged 22:00 Heparin Per Pharmacy [facility] 01/06/25 In Process Protocol 16:55 Date of Service: Jan 05, 2025 Billing Provider: LASHELL NINO DO Common Visit Codes: [id number] INP/OBS CARE(HIGH) LASHELL NINO DO Jan 06, 2025 21:21
--- NOTE | 2025-01-06 21:35 | DVHPN2 ---
Reviewed: Care Plan, H&P, Labs, Medications, Previous Orders, Radiology Changes from previous H/P or p: No Changes General: Per HPI Eyes: No Pain, No Vision change, No Conjunctivae inflammation, No Eyelid inflammation, No Other, No Redness ENT: No Ear pain, No Ear discharge, No Nose pain, No Nose discharge, No Nose congestion, No Mouth pain, No Mouth swelling, No Throat pain, No Throat swelling, No Other Cardiovascular: No Chest Pain, No Palpitations, No Orthopnea, No Paroxysmal Noc. Dyspnea, No Edema, No Lt Headedness, No Other Respiratory: No Cough, No Dry, No Shortness of breath, No SOB with excertion, No Wheezing, No Hemoptysis, No Pleuritic Pain, No Sputum, No Other Gastrointestinal: No Nausea, No Vomiting, No Abdominal Pain, No Diarrhea, No Constipation, No Melena, No Hematochezia, No Other Genitourinary: No Dysuria, No Frequency, No Incontinence, No Hematuria, No Retention, No Other Musculoskeletal: No other, No neck pain, No shoulder pain, No arm pain, No back pain, No hand pain, No leg pain, No foot pain Skin: No Rash, No Lesions, No Jaundice, No Bruising, No Other Objective Vitals Vital Signs Date Time Temp Pulse Resp B/P (MAP) Pulse Ox O2 Delivery O2 Flow Rate FiO2 01/06/25 21:00 98.3 69 18 163/111 (128) 98 98.3 01/06/25 19:55 Room Air* 0 21 Intake/Output Intake and Output 01/06/25 07:00 Intake Total 1325 ml Balance 1325 ml Intake Oral 1325 ml # Voids 4 # Bowel Movements 1 General Appearance: Alert, Oriented X3, Cooperative HEENT: Atraumatic Cardiovascular: Normal S1, Normal S2 Neuro: Normal speech Medications Current Medications Medications Dose Ordered Sig/Mana Route Start Time Stop Time Status Last Admin Dose Admin Enoxaparin Sodium 90 mg Q12HR SC 01/05/25 10:00 Hold 01/05/25 10:25 90 MG Losartan Potassium 100 mg DAILY PO 01/05/25 10:00 01/06/25 09:03 100 MG Atorvastatin Calcium 20 mg HS PO 01/04/25 22:00 01/05/25 21:20 20 MG Carvedilol 6.25 mg Q12HR PO 01/04/25 22:00 01/06/25 09:01 6.25 MG Hydralazine HCl 10 mg Q6HP PRN IV 01/04/25 21:45 01/06/25 00:46 10 MG Allopurinol 300 mg DAILY PO 01/05/25 10:00 01/06/25 09:01 300 MG Sodium Chloride 10 ml Q8HR IV 01/04/25 22:00 01/06/25 14:28 10 ML Acetaminophen/ Hydrocodone Bitart 1 tab Q4HP PRN PO 01/04/25 21:45 Ondansetron HCl 4 mg Q4HP PRN IV 01/04/25 21:45 Docusate Sodium 100 mg BIDPRN PRN PO 01/04/25 21:45 Acetaminophen 650 mg Q6HP PRN PO 01/04/25 21:45 01/06/25 09:07 650 MG Morphine Sulfate 2 mg Q4HPRN PRN IV 01/04/25 21:45 Nitroglycerin 0.4 mg Q5MINP PRN SL 01/04/25 21:45 Morphine Sulfate 2 mg Q30M PRN IV 01/04/25 21:45 Melatonin 5 mg HS PO 01/06/25 02:00 01/06/25 02:12 5 MG Heparin Sodium/ Dextrose 250 ml @ 12 mls/hr [id number] IV 01/06/25 03:00 01/06/25 17:53 12 MLS/HR Laboratory Results Laboratory Tests 01/05/25 06:55 01/06/25 01:56 Coagulation Test 01/06/25 01:56 01/06/25 10:25 01/06/25 15:55 Prothrombin Time 10.9 sec (9.3-11.8) 10.9 sec (9.3-11.8) 10.7 sec (9.3-11.8) Prothrombin Time INR 1.03 (0.9-1.15) 1.03 (0.9-1.15) 1.01 (0.9-1.15) Activated Partial Thromboplast Time 47.4 SEC (24.5-34.5) H 63.4 SEC (24.5-34.5) H 60.1 SEC (24.5-34.5) H Urinalysis Test 01/05/25 06:28 Urine Color Light-yellow (Yellow) Urine Clarity Hazy (Clear) H Urine pH 5.5 (5.0-9.0) Urine Specific [place] 1.018 (1.001-1.035) Urine Protein Negative (Negative) Urine Ketones Negative (Negative) Urine Blood Negative /uL (Negative) Urine Nitrite Negative (Negative) Urine Bilirubin Negative (Negative) Urine Urobilinogen Normal mg/dL (Negative) Urine Leukocyte Esterase 3+ /uL (Negative) Urine RBC 4 /hpf (0 - 3) Urine Microscopic WBC 51 /HPF (0-3) H Urine Squamous Epithelial Cells Few /hpf (<5) Urine Bacteria Few /hpf (None Seen) H Urine Glucose Normal mg/dL (Normal) Microbiology Microbiology Date/Time Source Procedure Growth Status 01/05/25 01:15 Nose MRSA Screen - Final Complete Labs and/or images reviewed: Labs reviewed by me, Image(s) reviewed by me Assessment/Plan Assessment/Plan The patient is a 59-year-old male with past medical history of AFib, gout, and hypertension who presented to [facility] ED from [facility] for evaluation of NSTEMI. Patient presented to the outside facility for midsternal chest pain radiating to the left upper extremity that started this morning. Patient was found with new onset of atrial fibrillation with RVR heart rate in the 160s. Patient was given diltiazem 20 mg IV which converted to normal sinus rhythm. Patient was given heparin 5000 units and aspirin prior to arrival. Patient was seen and evaluated in the ED, laboratory data shows WBC 6.3, platelets 218, sodium 142, potassium 4.2, BUN 17, creatinine 1.40, GFR 57, glucose 98, calcium 9.2, troponin 443, blood pressure 169/109, heart rate 75, temperature 97.4 F, O2 saturation 97% on oxygen. Chest x-ray show no acute cardiopulmonary disease. Please see medication orders section in the computer. NSTEMI (non-ST elevated myocardial infarction) New onset atrial fibrillation Generalized weakness chest pain HTN gout started on heparin drip cardiology on consult Plan discussed with: Patient My Orders Orders - LASHELL NINO DO Procedure Category Date Status Time Heparin Drip/D5w PHA 01/06/25 In Process 100units/Ml 03:00 Complete Blood Count LAB 01/07/25 Verified 04:00 Heparin Per Pharmacy [facility] 01/06/25 In Process Protocol 11:29 PTPTT LAB 01/06/25 Logged 22:00 Heparin Per Pharmacy [facility] 01/06/25 In Process Protocol 16:55 Date of Service: Jan 06, 2025 Billing Provider: LASHELL NINO DO Common Visit Codes: [id number] INP/OBS CARE(HIGH) LASHELL NINO DO Jan 06, 2025 21:34
[2025-01-06 23:08] LABS: INR 1.0 (0.9-1.15); Partial Thromboplastin Time 56.8 SEC (24.5-34.5); Prothrombin Time 10.6 sec (9.3-11.8)
--- NOTE | 2025-01-06 23:39 | DVHPN2 ---
Progress Note - Dictate Date Seen: Jan 06, 2025 Medical Necessity Reason Pt with a Central, PICC or Fol: No Subjective Patient was seen and evaluated in follow up. No overnight events. Patient remains on heparin drip. Telemetry reviewed. vital signs Vital Sign Date Time Temp Pulse Resp B/P (MAP) Pulse Ox O2 Delivery O2 Flow Rate FiO2 01/06/25 21:43 163/111 01/06/25 21:00 98.3 69 18 98 98.3 01/06/25 19:55 Room Air* 0 21 Total Intake and Output 01/05/25 01/05/25 01/06/25 15:00 23:00 07:00 Intake Total 625 ml 700 ml Balance 625 ml 700 ml medications Current Medications Medications Dose Ordered Sig/Mana Route Start Time Stop Time Status Last Admin Dose Admin Enoxaparin Sodium 90 mg Q12HR SC 01/05/25 10:00 Hold 01/05/25 10:25 90 MG Losartan Potassium 100 mg DAILY PO 01/05/25 10:00 01/06/25 09:03 100 MG Atorvastatin Calcium 20 mg HS PO 01/04/25 22:00 01/06/25 21:44 20 MG Carvedilol 6.25 mg Q12HR PO 01/04/25 22:00 01/06/25 09:01 6.25 MG Hydralazine HCl 10 mg Q6HP PRN IV 01/04/25 21:45 01/06/25 21:43 10 MG Allopurinol 300 mg DAILY PO 01/05/25 10:00 01/06/25 09:01 300 MG Sodium Chloride 10 ml Q8HR IV 01/04/25 22:00 01/06/25 21:44 10 ML Acetaminophen/ Hydrocodone Bitart 1 tab Q4HP PRN PO 01/04/25 21:45 Ondansetron HCl 4 mg Q4HP PRN IV 01/04/25 21:45 Docusate Sodium 100 mg BIDPRN PRN PO 01/04/25 21:45 Acetaminophen 650 mg Q6HP PRN PO 01/04/25 21:45 01/06/25 09:07 650 MG Morphine Sulfate 2 mg Q4HPRN PRN IV 01/04/25 21:45 Nitroglycerin 0.4 mg Q5MINP PRN SL 01/04/25 21:45 Morphine Sulfate 2 mg Q30M PRN IV 01/04/25 21:45 Melatonin 5 mg HS PO 01/06/25 02:00 01/06/25 21:44 5 MG Heparin Sodium/ Dextrose 250 ml @ 12 mls/hr [id number] IV 01/06/25 03:00 01/06/25 17:53 12 MLS/HR objective GENERAL: Alert and oriented x 3. No acute distress. EYES: PERRL, EOMI. Anicteric. HENT: Moist mucous membranes. LUNGS: Clear to auscultation bilaterally. CARDIOVASCULAR: Regular rate and rhythm. ABDOMEN: Soft, nontender and nondistended. EXTREMITIES: No edema. NEUROLOGIC: No focal neurological deficits. SKIN: Warm, dry. laboratory and microbiology Laboratory Tests 01/06/25 01:56 01/05/25 06:55 Test 01/05/25 06:55 Range/Units Serum Glucose 92 74-106 mg/dL Problem List NSTEMI (non-ST elevated myocardial infarction). New onset atrial fibrillation. Generalized weakness. Assessment/Plan Continued all current supportive medical care. Morphine and [place] for pain management. Lipitor. Coreg, Losartan. Heparin drip per pharmacy. IV Hydralazine for SBP >150. Nitro SL. Additional plan as per the hospital course. Plan discussed with: Patient CLARK RUBIN MD Jan 06, 2025 23:39
[2025-01-07] VITALS (9 sets, daily range): BP systolic 129–159; BP diastolic 85–101; PULSE 65–94; RESP 18; TEMP 97.7–98.3; O2SAT 95–98
[2025-01-07 06:50] LABS: Hematocrit 45.6 % (41.0-53.0); Hemoglobin 15.6 g/dL (13.5-17.5); Mean Corpuscular Hemoglobin 29.4 pg (28.0-32.0); Mean Corpuscular Volume 86.2 fL (80.0-100.0); Nucleated Red Blood Cells % 0.1 %
[2025-01-07 09:03] LABS: Hematocrit 46.7 % (41.0-53.0); Hemoglobin 15.7 g/dL (13.5-17.5); Mean Corpuscular Hemoglobin 28.9 pg (28.0-32.0); Mean Corpuscular Volume 86.0 fL (80.0-100.0); Nucleated Red Blood Cells % 0.1 %
[2025-01-07 09:21] LABS: INR 1.07 (0.9-1.15); Partial Thromboplastin Time 63.4 SEC (24.5-34.5); Prothrombin Time 11.3 sec (9.3-11.8)
--- NOTE | 2025-01-07 10:27 | CONS ---
Pharmacy Clinical Information: HEPARIN DRIP, ACS PROTOCOL @0838 APTT 63.4 - NO BOLUS / NO CHANGE, CONTINUE HEPARIN DRIP AT RATE 1200 UNITS/HR 3 CONSECUTIVE APTT THERAPEUTIC => APTT EVERY 24 HRS NEXT APTT DRAW SCHEDULED @0500 PER RX PROTOCOL CONFIRMED AND READ BACK WITH THOMAS DUMONT [facility] RESIDENT Jan 07, 2025 10:27
--- NOTE | 2025-01-07 16:24 | DVHPN2 ---
Consult Progress Note Subjective Other Systems: Patient denies any chest pain at time of assessment. Patient remains in normal sinus rhythm on laboratory monitor. Objective vital signs Vital Sign Date Time Temp Pulse Resp B/P (MAP) Pulse Ox O2 Delivery O2 Flow Rate FiO2 01/07/25 10:26 159/99 01/07/25 10:25 79 01/07/25 08:42 98.3 18 97 98.3 01/07/25 08:27 Room Air* 0 21 Total Intake and Output 01/06/25 01/06/25 01/07/25 15:00 23:00 07:00 Intake Total 725 ml 600 ml Output Total 1200 ml Balance -475 ml 600 ml medications Current Medications Medications Dose Ordered Sig/Mana Route Start Time Stop Time Status Last Admin Dose Admin Enoxaparin Sodium 90 mg Q12HR SC 01/05/25 10:00 Hold 01/05/25 10:25 90 MG Losartan Potassium 100 mg DAILY PO 01/05/25 10:00 01/07/25 10:26 100 MG Atorvastatin Calcium 20 mg HS PO 01/04/25 22:00 01/06/25 21:44 20 MG Carvedilol 6.25 mg Q12HR PO 01/04/25 22:00 01/07/25 10:25 6.25 MG Hydralazine HCl 10 mg Q6HP PRN IV 01/04/25 21:45 01/06/25 21:43 10 MG Allopurinol 300 mg DAILY PO 01/05/25 10:00 01/07/25 10:26 300 MG Sodium Chloride 10 ml Q8HR IV 01/04/25 22:00 01/07/25 04:53 10 ML Acetaminophen/ Hydrocodone Bitart 1 tab Q4HP PRN PO 01/04/25 21:45 Ondansetron HCl 4 mg Q4HP PRN IV 01/04/25 21:45 Docusate Sodium 100 mg BIDPRN PRN PO 01/04/25 21:45 Acetaminophen 650 mg Q6HP PRN PO 01/04/25 21:45 01/06/25 09:07 650 MG Morphine Sulfate 2 mg Q4HPRN PRN IV 01/04/25 21:45 Nitroglycerin 0.4 mg Q5MINP PRN SL 01/04/25 21:45 Morphine Sulfate 2 mg Q30M PRN IV 01/04/25 21:45 Melatonin 5 mg HS PO 01/06/25 02:00 01/06/25 21:44 5 MG Heparin Sodium/ Dextrose 250 ml @ 12 mls/hr [id number] IV 01/06/25 03:00 01/06/25 17:53 12 MLS/HR Examination: GENERAL:Normal, LUNGS:Normal, CVS:Normal, NEURO:Normal laboratory and microbiology Laboratory Tests 01/07/25 08:38 01/05/25 06:55 Test 01/05/25 06:55 Range/Units Serum Glucose 92 74-106 mg/dL Problem List/Assessment/Plan Problem List/Assessment/Plan NSTEMI, rule out coronary artery disease Rule out structural heart disease Atrial fibrillation with rapid ventricular response, now normal sinus rhythm Hypertension Dyslipidemia Obesity Methamphetamine use Plan/recommendations (Dr. Dalton): Case discussed with . The patient was brought from [facility] with complaints of chest pain. Twelve lead electrocardiogram (from [facility]) revealed the patient was in atrial fibrillation with rapid ventricular response. Per records, the patient was given diltiazem and transitioned into a normal sinus rhythm. He was then transferred to this facility for higher level of care given elevated troponin level. Twelve lead electrocardiogram done at this facility reveals normal sinus rhythm without any significant ST segment changes. The patient presented with elevated troponin levels peaking at 447ng/L. The patient currently remains on a heparin drip per ACS protocol. Given the patient's clinical presentation, comorbidities, and HEART (6 points)/EUGENIO(2 points) score, the patient was offered inpatient cardiac workup with a coronary angiogram. The patient is refusing at this time and states he wants to go home. Patient states he does not want to stay another night in the hospital and is adamantly requesting to follow up with Cardiology in the outpatient setting. Thoroughly discussed risks of leaving without proper inpatient cardiac workup. Patient verbalized understanding and states he still wants to follow up as outpatient. 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 [id number] VASc score: 2 points, HAS-BLED score: 1 point. We will recommend initiation of NOAC therapy with Eliquis and beta-radha therapy for rate control. The patient is refusing any further inpatient cardiac workup, we will highly recommend for the patient to follow up with Cardiology in the outpatient setting post discharge. Thank you for allowing us to care for this patient. Please call with any questions or concerns. This medical document was created using an electronic medical record system with voice recognition software and computerized dictation system. Although this document has been carefully reviewed, there might still be some phonetic and typographical errors. Occasional wrong-word or ``sound-alike substitutions may have occurred due to the inherent limitations of voice recognition software. These areas are purely typographical due to imperfections of the software programs and do not reflect any compromise in the patient's medical care. Please read the chart carefully and recognize, using context, where these substitutions have occurred. Plan discussed with: Patient, Spouse, Other (Bedside RN) Dietary Evaluation Review Recommendations by RD: Dietary education by RD Comments: Cardiac Diet Increase physical activities Wt management upon D/C Provided simplified meal plan Expected Outcomes/Goals: gradual wt loss Date of Service: Jan 07, 2025 Billing Provider: DEBBY MOORE Common Visit Codes: [id number] INP/OBS CARE(HIGH) DEBBY MOORE Jan 07, 2025 16:24
[2025-01-07 16:35] LABS: Triglycerides 70 mg/dL (< 150)
[2025-01-07 16:37] LABS: Cholesterol 146 mg/dL (< 200); HDL Cholesterol 55 mg/dL (40-59)
--- NOTE | 2025-01-07 23:40 | DVHPN2 ---
Consult Progress Note Date Seen: Jan 07, 2025 Subjective Other Systems: Patient was seen and evaluated in follow up. Patient denies any chest pain at time of assessment. Patient remains in normal sinus rhythm on monitoring engineer. HGB A1c 5.6. Telemetry reviewed. Objective vital signs Vital Sign Date Time Temp Pulse Resp B/P (MAP) Pulse Ox O2 Delivery O2 Flow Rate FiO2 01/07/25 22:44 71 156/101 01/07/25 21:00 98.2 18 97 98.2 01/07/25 08:27 Room Air* 0 21 Total Intake and Output 01/06/25 01/06/25 01/07/25 15:00 23:00 07:00 Intake Total 725 ml 600 ml Output Total 1200 ml Balance -475 ml 600 ml medications Current Medications Medications Dose Ordered Sig/Mana Route Start Time Stop Time Status Last Admin Dose Admin Enoxaparin Sodium 90 mg Q12HR SC 01/05/25 10:00 Hold 01/05/25 10:25 90 MG Losartan Potassium 100 mg DAILY PO 01/05/25 10:00 01/07/25 10:26 100 MG Atorvastatin Calcium 20 mg HS PO 01/04/25 22:00 01/07/25 22:43 20 MG Carvedilol 6.25 mg Q12HR PO 01/04/25 22:00 01/07/25 22:44 6.25 MG Hydralazine HCl 10 mg Q6HP PRN IV 01/04/25 21:45 01/06/25 21:43 10 MG Allopurinol 300 mg DAILY PO 01/05/25 10:00 01/07/25 10:26 300 MG Sodium Chloride 10 ml Q8HR IV 01/04/25 22:00 01/07/25 22:43 10 ML Acetaminophen/ Hydrocodone Bitart 1 tab Q4HP PRN PO 01/04/25 21:45 Ondansetron HCl 4 mg Q4HP PRN IV 01/04/25 21:45 Docusate Sodium 100 mg BIDPRN PRN PO 01/04/25 21:45 Acetaminophen 650 mg Q6HP PRN PO 01/04/25 21:45 01/06/25 09:07 650 MG Morphine Sulfate 2 mg Q4HPRN PRN IV 01/04/25 21:45 Nitroglycerin 0.4 mg Q5MINP PRN SL 01/04/25 21:45 Morphine Sulfate 2 mg Q30M PRN IV 01/04/25 21:45 Melatonin 5 mg HS PO 01/06/25 02:00 01/07/25 22:43 5 MG Heparin Sodium/ Dextrose 250 ml @ 12 mls/hr [id number] IV 01/06/25 03:00 01/07/25 17:37 12 MLS/HR Examination: GENERAL:Normal, HEENT:Normal, NECK:Normal, LUNGS:Normal, CVS:Normal, ABDOMEN:Normal, MSK:Normal, SKIN:Normal, NEURO:Normal laboratory and microbiology Laboratory Tests 01/07/25 08:38 01/05/25 06:55 Test 01/05/25 06:55 Range/Units Serum Glucose 92 74-106 mg/dL Problem List/Assessment/Plan Problem List/Assessment/Plan NSTEMI, rule out coronary artery disease. Rule out structural heart disease. Atrial fibrillation with rapid ventricular response, now normal sinus rhythm. Hypertension. Dyslipidemia. Obesity. Methamphetamine use. Plan/recommendations (Dr. Rubin): Continued all current supportive medical care. Patient has been seen by Fifi Traore NP on my behalf. We have discussed the plan with the patient. The patient was brought from [facility] with complaints of chest pain. Twelve lead electrocardiogram (from [facility]) revealed the patient was in atrial fibrillation with rapid ventricular response. Per records, the patient was given diltiazem and transitioned into a normal sinus rhythm. He was then transferred to this facility for higher level of care given elevated troponin level. Twelve lead electrocardiogram done at this facility reveals normal sinus rhythm without any significant ST segment changes. The patient presented with elevated troponin levels peaking at 447ng/L. The patient currently remains on a heparin drip per ACS protocol. Given the patient's clinical presentation, comorbidities, and HEART (6 points)/EUGENIO(2 points) score, the patient was offered inpatient cardiac workup with a coronary angiogram. The patient is refusing at this time and states he wants to go home. Patient states he does not want to stay another night in the hospital and is adamantly requesting to follow up with Cardiology in the outpatient setting. Thoroughly discussed risks of leaving without proper inpatient cardiac workup. Patient verbalized understanding and states he still wants to follow up as outpatient. [id number] VASc score: 2 points, HAS-BLED score: 1 point. We will recommend initiation of NOAC therapy with Eliquis and beta-radha therapy for rate control. The patient is refusing any further inpatient cardiac workup, we will highly recommend for the patient to follow up with Cardiology in the outpatient setting post discharge. Additional plan as per the hospital course. Plan discussed with: Patient Dietary Evaluation Review Recommendations by RD: Dietary education by RD Comments: Cardiac Diet Increase physical activities Wt management upon D/C Provided simplified meal plan Expected Outcomes/Goals: gradual wt loss Date of Service: Jan 07, 2025 Billing Provider: CLARK RUBIN MD Cardiology Common Codes: [id number] [facility](High CLARK RUBIN MD Jan 07, 2025 23:40
[2025-01-08 01:00] VITALS: BP 110/78; PULSE 80; RESP 17; TEMP 98.3; O2SAT 97
[2025-01-08 05:00] VITALS: BP 145/83; PULSE 79; RESP 18; TEMP 98.3; O2SAT 98
[2025-01-08 07:04] LABS: Hematocrit 47.2 % (41.0-53.0); Hemoglobin 15.9 g/dL (13.5-17.5); Mean Corpuscular Hemoglobin 29.4 pg (28.0-32.0); Mean Corpuscular Volume 87.1 fL (80.0-100.0); Nucleated Red Blood Cells % 0.0 %
[2025-01-08 07:13] LABS: INR 1.05 (0.9-1.15); Partial Thromboplastin Time 68.3 SEC (24.5-34.5); Prothrombin Time 11.1 sec (9.3-11.8)
[2025-01-08 08:00] VITALS: PULSE 62; PULSE 68; RESP 16; O2SAT 98
[2025-01-08 08:41] VITALS: BP 142/94; PULSE 68; RESP 16; TEMP 97.6; O2SAT 98
--- NOTE | 2025-01-08 09:56 | DVHSR ---
APPROVED REPORT EXAM: Two-dimensional and M-mode echocardiogram with Doppler and color Doppler. Blood Pressure: 155/99 mmHg INDICATION NSTEMI RISK FACTORS Obesity: Height: 5'4, Weight: 215 DIMENSIONS LVDd4.8 (3.8-5.7cm)LA (2D)3.2 (1.9-4.0cm)Aortic Root3.3 (2.0-3.7cm) LVDs3.4 (2.5-4.0cm)LA (MM) (1.9-4.0cm)Aortic Cusp Exc1.5 (1.5-2.0cm) EF (%) 50.0 (55-70%)Rt. Atrium3.4 (1.9-4.0cm)Asc. Aorta cm IVSd1.0 (0.7-1.1cm)RV (D)3.4 (1.8-2.4cm) PWd1.0 (0.7-1.1cm) Mitral Valve MitralMitral Stenosis E wave0.56m/sMV Mean GR.mmHg A wave0.78m/sMV Peak GR.mmHg E/A ratio0.72D MVAcm2 DECEL [id number] 1/2 Timems Aortic Valve Aortic ValveAortic Stenosis V10.97m/Brayan Mean GR.7mmHg V21.75m/rBayan Peak GR.12mmHg LVOT Diameter2.0 (1.8-2.4cm)Doppler AVA1.74cm2 Pulmonic Valve V21.18m/s Other Information Technically limited study due to body habitus.patient position. Conclusion LV EF IS 55% AND IS NORMAL MILD LVH AND MILD LV DIASTOLIC DYSFUNCTION NORMAL VALVES NO EFFUSION
[2025-01-08 13:00] VITALS: BP 131/87; PULSE 68; RESP 16; TEMP 97.8; O2SAT 96
--- NOTE | 2025-01-08 13:42 | DVHPN2 ---
Reviewed: Care Plan, H&P, Labs, Medications, Previous Orders, Radiology Changes from previous H/P or p: No Changes General: Per HPI Eyes: No Pain, No Vision change, No Conjunctivae inflammation, No Eyelid inflammation, No Other, No Redness ENT: No Ear pain, No Ear discharge, No Nose pain, No Nose discharge, No Nose congestion, No Mouth pain, No Mouth swelling, No Throat pain, No Throat swelling, No Other Cardiovascular: No Chest Pain, No Palpitations, No Orthopnea, No Paroxysmal Noc. Dyspnea, No Edema, No Lt Headedness, No Other Respiratory: No Cough, No Dry, No Shortness of breath, No SOB with excertion, No Wheezing, No Hemoptysis, No Pleuritic Pain, No Sputum, No Other Gastrointestinal: No Nausea, No Vomiting, No Abdominal Pain, No Diarrhea, No Constipation, No Melena, No Hematochezia, No Other Genitourinary: No Dysuria, No Frequency, No Incontinence, No Hematuria, No Retention, No Other Musculoskeletal: No other, No neck pain, No shoulder pain, No arm pain, No back pain, No hand pain, No leg pain, No foot pain Skin: No Rash, No Lesions, No Jaundice, No Bruising, No Other Objective Vitals Vital Signs Date Time Temp Pulse Resp B/P (MAP) Pulse Ox O2 Delivery O2 Flow Rate FiO2 01/08/25 10:00 68 131/87 01/08/25 08:41 97.6 16 98 97.6 01/08/25 08:00 Room Air* 0 21 Intake/Output Intake and Output 01/08/25 06:59 Intake Total 1180 ml Balance 1180 ml Intake Oral 1180 ml # Voids 4 # Bowel Movements 2 General Appearance: Alert, Oriented X3, Cooperative HEENT: Atraumatic Cardiovascular: Normal S1, Normal S2 Neuro: Normal speech Medications Current Medications Medications Dose Ordered Sig/Mana Route Start Time Stop Time Status Last Admin Dose Admin Enoxaparin Sodium 90 mg Q12HR SC 01/05/25 10:00 Hold 01/05/25 10:25 90 MG Losartan Potassium 100 mg DAILY PO 01/05/25 10:00 01/08/25 09:00 100 MG Atorvastatin Calcium 20 mg HS PO 01/04/25 22:00 01/07/25 22:43 20 MG Carvedilol 6.25 mg Q12HR PO 01/04/25 22:00 01/08/25 09:00 6.25 MG Hydralazine HCl 10 mg Q6HP PRN IV 01/04/25 21:45 01/06/25 21:43 10 MG Allopurinol 300 mg DAILY PO 01/05/25 10:00 01/08/25 09:00 300 MG Sodium Chloride 10 ml Q8HR IV 01/04/25 22:00 01/08/25 13:06 10 ML Acetaminophen/ Hydrocodone Bitart 1 tab Q4HP PRN PO 01/04/25 21:45 Ondansetron HCl 4 mg Q4HP PRN IV 01/04/25 21:45 Docusate Sodium 100 mg BIDPRN PRN PO 01/04/25 21:45 Acetaminophen 650 mg Q6HP PRN PO 01/04/25 21:45 01/06/25 09:07 650 MG Morphine Sulfate 2 mg Q4HPRN PRN IV 01/04/25 21:45 Nitroglycerin 0.4 mg Q5MINP PRN SL 01/04/25 21:45 Morphine Sulfate 2 mg Q30M PRN IV 01/04/25 21:45 Melatonin 5 mg HS PO 01/06/25 02:00 01/07/25 22:43 5 MG Heparin Sodium/ Dextrose 250 ml @ 12 mls/hr [id number] IV 01/06/25 03:00 01/07/25 17:37 12 MLS/HR Laboratory Results Laboratory Tests 01/05/25 06:55 01/08/25 06:36 Coagulation Test 01/08/25 06:36 Prothrombin Time 11.1 sec (9.3-11.8) Prothrombin Time INR 1.05 (0.9-1.15) Activated Partial Thromboplast Time 68.3 SEC (24.5-34.5) H Urinalysis Test 01/05/25 06:28 Urine Color Light-yellow (Yellow) Urine Clarity Hazy (Clear) H Urine pH 5.5 (5.0-9.0) Urine Specific [place] 1.018 (1.001-1.035) Urine Protein Negative (Negative) Urine Ketones Negative (Negative) Urine Blood Negative /uL (Negative) Urine Nitrite Negative (Negative) Urine Bilirubin Negative (Negative) Urine Urobilinogen Normal mg/dL (Negative) Urine Leukocyte Esterase 3+ /uL (Negative) Urine RBC 4 /hpf (0 - 3) Urine Microscopic WBC 51 /HPF (0-3) H Urine Squamous Epithelial Cells Few /hpf (<5) Urine Bacteria Few /hpf (None Seen) H Urine Glucose Normal mg/dL (Normal) Microbiology Microbiology Date/Time Source Procedure Growth Status 01/05/25 01:15 Nose MRSA Screen - Final Complete Labs and/or images reviewed: Labs reviewed by me, Image(s) reviewed by me Assessment/Plan Assessment/Plan The patient is a 59-year-old male with past medical history of AFib, gout, and hypertension who presented to [facility] ED from [facility] for evaluation of NSTEMI. Patient presented to the outside facility for midsternal chest pain radiating to the left upper extremity that started this morning. Patient was found with new onset of atrial fibrillation with RVR heart rate in the 160s. Patient was given diltiazem 20 mg IV which converted to normal sinus rhythm. Patient was given heparin 5000 units and aspirin prior to arrival. Patient was seen and evaluated in the ED, laboratory data shows WBC 6.3, platelets 218, sodium 142, potassium 4.2, BUN 17, creatinine 1.40, GFR 57, glucose 98, calcium 9.2, troponin 443, blood pressure 169/109, heart rate 75, temperature 97.4 F, O2 saturation 97% on oxygen. Chest x-ray show no acute cardiopulmonary disease. Please see medication orders section in the computer. NSTEMI (non-ST elevated myocardial infarction) New onset atrial fibrillation Generalized weakness chest pain HTN gout started on heparin drip cardiology on consult 01/07/2025: cardiology evaluated pt and offered cath within 24 hours. pt refused catheterization. Plan discussed with: Patient, Spouse My Orders Orders - LASHELL NINO DO Procedure Category Date Status Time PTPTT LAB 01/09/25 Verified 04:00 Complete Blood Count LAB 01/09/25 Verified 04:00 Heparin Per Pharmacy NARENDRA 01/09/25 In Process Protocol 05:00 Date of Service: Jan 07, 2025 Billing Provider: LASHELL NINO DO Common Visit Codes: [id number] INP/OBS CARE(HIGH) LASHELL NINO DO Jan 08, 2025 13:42
[2025-01-08] MEDS ORDERED: ALL100T PO (13:45)
[2025-01-08] MEDS ORDERED: APIX5TAB PO (13:45)
[2025-01-08] MEDS ORDERED: CARV-214 PO (13:45)
[2025-01-08] MEDS ORDERED: ATOR20TA50 PO (13:45)
[2025-01-08] MEDS ORDERED: LOSA-534 PO (13:45)
--- NOTE | 2025-01-08 13:47 | DVHDS2 ---
Discharge Summary Date of Admission Jan 04, 2025 at 21:31 Date of Discharge: Jan 08, 2025 Labs/Diagnostic Data: Laboratory Results Test 01/08/25 06:36 01/07/25 08:38 01/07/25 05:55 01/05/25 06:55 White Blood Count 6.6 10^3/uL (4.4-10.8) Red Blood Count 5.42 10^6/uL (4.5-5.90) Hemoglobin 15.9 g/dL (13.5-17.5) Hematocrit 47.2 % (41.0-53.0) Mean Corpuscular Volume 87.1 fL (80.0-100.0) Mean Corpuscular Hemoglobin 29.4 pg (28.0-32.0) Mean Corpuscular Hemoglobin Concent 33.7 g/dL (32.0-36.0) Red Cell Distribution Width 14.6 % (11.8-14.3) Platelet Count 212 10^3/uL (140-450) Mean Platelet Volume 8.9 fL (6.9-10.8) Neutrophils (%) (Auto) 66.1 % (37.0-80.0) Lymphocytes (%) (Auto) 22.4 % (10.0-50.0) Monocytes (%) (Auto) 8.2 % (0.0-12.0) Eosinophils (%) (Auto) 2.6 % (0.0-7.0) Basophils (%) (Auto) 0.7 % (0.0-2.0) Neutrophils # (Auto) 4.4 10 ^3/uL (1.6-8.6) Lymphocytes # (Auto) 1.5 10 ^3/uL (0.4-5.4) Monocytes # (Auto) 0.5 10 ^3/uL (0-1.3) Eosinophils # (Auto) 0.2 10 ^3/uL (0-0.8) Basophils # (Auto) 0 10 ^3/uL (0-0.2) Nucleated Red Blood Cells 0.0 % Prothrombin Time 11.1 sec (9.3-11.8) Prothrombin Time INR 1.05 (0.9-1.15) Activated Partial Thromboplast Time 68.3 SEC (24.5-34.5) Hemoglobin A1c 5.6 % A1C (<5.7) Triglycerides Level 70 mg/dL (< 150) Cholesterol Level 146 mg/dL (< 200) LDL Cholesterol 82 mg/dL (< 100) HDL Cholesterol 55 mg/dL (40-59) Sodium Level 144 mmol/L (136-145) Potassium Level 3.9 mmol/L (3.5-5.1) Chloride Level 106 mmol/L (98-107) Carbon Dioxide Level 27 mmol/L (20-31) Anion Gap 11 (5-15) Blood Urea Nitrogen 21 mg/dL (9-23) Creatinine 1.33 mg/dL (0.700-1.30) Glomerular Filtration Rate Calc 61 mL/min (>90) BUN/Creatinine Ratio 15.8 (10.0-20.0) Serum Glucose 92 mg/dL (74-106) Calcium Level 9.0 mg/dL (8.7-10.4) Total Bilirubin 0.8 mg/dL (0.2-1.0) Aspartate Amino Transferase (AST) 25 U/L (13-40) Alanine Aminotransferase (ALT) 27 U/L (7-40) Alkaline Phosphatase 74 U/L (46-116) Total Protein 7.0 g/dL (5.7-8.2) Albumin 4.0 g/dL (3.2-4.8) Test 01/05/25 06:28 01/05/25 00:36 01/04/25 18:50 Urine Color Light-yellow (Yellow) Urine Clarity Hazy (Clear) Urine pH 5.5 (5.0-9.0) Urine Specific [place] 1.018 (1.001-1.035) Urine Protein Negative (Negative) Urine Ketones Negative (Negative) Urine Blood Negative /uL (Negative) Urine Nitrite Negative (Negative) Urine Bilirubin Negative (Negative) Urine Urobilinogen Normal mg/dL (Negative) Urine Leukocyte Esterase 3+ /uL (Negative) Urine RBC 4 /hpf (0 - 3) Urine Microscopic WBC 51 /HPF (0-3) Urine Squamous Epithelial Cells Few /hpf (<5) Urine Bacteria Few /hpf (None Seen) Urine Glucose Normal mg/dL (Normal) Troponin I High Sensitivity 435 ng/L (</=54) Magnesium Level 2.1 mg/dL (1.6-2.6) B-Type Natriuretic Peptide 121.26 pg/mL (0-100) Other Laboratory Tests 01/08/25 06:36 01/05/25 06:55 Brief Hx & Hospital Course: The patient is a 59-year-old male with past medical history of AFib, gout, and hypertension who presented to [facility] ED from [facility] for evaluation of NSTEMI. Patient presented to the outside facility for midsternal chest pain radiating to the left upper extremity that started this morning. Patient was found with new onset of atrial fibrillation with RVR heart rate in the 160s. Patient was given diltiazem 20 mg IV which converted to normal sinus rhythm. Patient was given heparin 5000 units and aspirin prior to arrival. Patient was seen and evaluated in the ED, laboratory data shows WBC 6.3, platelets 218, sodium 142, potassium 4.2, BUN 17, creatinine 1.40, GFR 57, glucose 98, calcium 9.2, troponin 443, blood pressure 169/109, heart rate 75, temperature 97.4 F, O2 saturation 97% on oxygen. Chest x-ray show no acute cardiopulmonary disease. Please see medication orders section in the computer. NSTEMI (non-ST elevated myocardial infarction) New onset atrial fibrillation Generalized weakness chest pain HTN gout started on heparin drip cardiology on consult 01/07/2025: cardiology evaluated pt and offered cath within 24 hours. pt refused catheterization. 01/08/2025: pt to be discharged to home with meds recommended by cardiology. Meds sent to local pharmacy for delivery Condition at Discharge: Fair Final Diagnosis/Problems List see above Discharge Disposition: Home Discharge Instruct/Medications Diet: Cardiac 2g Na,low cholest Activity: No Restrictions, As Tolerated Scheduled Allopurinol (Allopurinol), 1 TAB PO DAILY, (Reported) Allopurinol (Zyloprim Tablet), 300 MG PO DAILY Apixaban Base (Eliquis), 5 MG PO BID Aspirin (Aspirin Low Dose), 1 TAB PO DAILY, (Reported) Atorvastatin Calcium (Atorvastatin Calcium), 1 TAB PO DAILY, (Reported) Atorvastatin Calcium (Atorvastatin Calcium), 20 MG PO HS Carvedilol (Carvedilol), 1 TAB PO BID, (Reported) Carvedilol (Coreg), 6.25 MG PO Q12HR Furosemide (Furosemide), 1 TAB PO DAILY, (Reported) Losartan Potassium (Losartan Potassium), 1 TAB PO DAILY, (Reported) Losartan Potassium (Losartan Potassium), 100 MG PO DAILY Discharge Statement: "Patient was advised to return to the ER or call 911 if any headaches, dizziness, shortness of breath, chest pain, abdominal pain, bleeding, fevers, or worsening of medical condition. Patient was counseled about treatment plan, medications, possible side effects, patientverbalized understanding. All questions were answered to the best of my ability. This discharge took greater then 30 minutes in planning, reviewing documentation, counseling the patient, and discussing with other team members." ASSESSMENT ASSESSMENT Assessment Date of Service: Jan 08, 2025 Billing Provider: LASHELL NINO DO Common Visit Codes: 20623-LBS/OBS DISCH DAY >30min LASHELL NINO DO Jan 08, 2025 13:47
[2025-01-08 14:29] VITALS: BP 131/87; PULSE 68; RESP 16; TEMP 97.8; O2SAT 96
[2025-01-08] MEDS: APIXABAN 5 MG TAB PO ONE (15:07)
--- NOTE | 2025-01-08 23:25 | DVHPN2 ---
Progress Note - Dictate Date Seen: Jan 08, 2025 Medical Necessity Reason Pt with a Central, PICC or Fol: No Subjective Patient was seen and evaluated in follow up. Patient has no new complaints at this time. Patient denies any cardiac symptoms. Patient is cardiac stable for discharge. Telemetry reviewed. vital signs Vital Sign Date Time Temp Pulse Resp B/P (MAP) Pulse Ox O2 Delivery O2 Flow Rate FiO2 01/08/25 10:00 68 131/87 01/08/25 08:41 97.6 16 98 97.6 01/08/25 08:00 Room Air* 0 21 Total Intake and Output 01/07/25 01/07/25 01/08/25 14:59 22:59 06:59 Intake Total 680 ml 500 ml Balance 680 ml 500 ml medications Current Medications Medications Dose Ordered Sig/Mana Route Start Time Stop Time Status Last Admin Dose Admin Losartan Potassium 100 mg DAILY PO 01/05/25 10:00 01/08/25 09:00 100 MG Atorvastatin Calcium 20 mg HS PO 01/04/25 22:00 01/07/25 22:43 20 MG Carvedilol 6.25 mg Q12HR PO 01/04/25 22:00 01/08/25 09:00 6.25 MG Hydralazine HCl 10 mg Q6HP PRN IV 01/04/25 21:45 01/06/25 21:43 10 MG Allopurinol 300 mg DAILY PO 01/05/25 10:00 01/08/25 09:00 300 MG Sodium Chloride 10 ml Q8HR IV 01/04/25 22:00 01/08/25 13:06 10 ML Acetaminophen/ Hydrocodone Bitart 1 tab Q4HP PRN PO 01/04/25 21:45 Ondansetron HCl 4 mg Q4HP PRN IV 01/04/25 21:45 Docusate Sodium 100 mg BIDPRN PRN PO 01/04/25 21:45 Acetaminophen 650 mg Q6HP PRN PO 01/04/25 21:45 01/06/25 09:07 650 MG Morphine Sulfate 2 mg Q4HPRN PRN IV 01/04/25 21:45 Nitroglycerin 0.4 mg Q5MINP PRN SL 01/04/25 21:45 Morphine Sulfate 2 mg Q30M PRN IV 01/04/25 21:45 Melatonin 5 mg HS PO 01/06/25 02:00 01/07/25 22:43 5 MG objective GENERAL: Alert and oriented x 3. No acute distress. EYES: PERRL, EOMI. Anicteric. HENT: Moist mucous membranes. LUNGS: Clear to auscultation bilaterally. CARDIOVASCULAR: Regular rate and rhythm. ABDOMEN: Soft, nontender and nondistended. EXTREMITIES: No edema. NEUROLOGIC: No focal neurological deficits. SKIN: Warm, dry. laboratory and microbiology Laboratory Tests 01/08/25 06:36 01/05/25 06:55 Test 01/05/25 06:55 Range/Units Serum Glucose 92 74-106 mg/dL Problem List NSTEMI, rule out coronary artery disease. Rule out structural heart disease. Atrial fibrillation with rapid ventricular response, now normal sinus rhythm. Hypertension. Dyslipidemia. Obesity. Methamphetamine use. Assessment/Plan Continued all current supportive medical care. Morphine and [place] for pain management. Coreg, Losartan. Nitro SL. Additional plan as per the hospital course. Dietary Evaluation Review Recommendations by RD: Dietary education by RD Comments: Cardiac Diet Increase physical activities Wt management upon D/C Provided simplified meal plan Expected Outcomes/Goals: gradual wt loss Plan discussed with: Patient CLARK RUBIN MD Jan 08, 2025 15:05
== END 2025-01-08 15:40 | disposition home or self-care (01) | DRG 190 ==
LOC: ER 18:40 → EDBD 18:40 → OVERFLOW 21:31 → TELE-WESTW 23:52
PROVIDERS: ADMIT Internal Medicine; ATTEND Internal Medicine
DX: I21.4 Non-ST elevation (NSTEMI) myocardial infarction (principal); E66.9 Obesity, unspecified; I10 Essential (primary) hypertension; I48.91 Unspecified atrial fibrillation; M10.9 Gout, unspecified; E78.5 Hyperlipidemia, unspecified; F15.90 Other stimulant use, unspecified, uncomplicated; Z68.36 Body mass index [BMI] 36.0-36.9, adult
CPT/HCPCS: 36415; 71045; 80053; 80061; 81001; 83036; 83735; 83880; 84484; 85025; 85610; 85730; 87081; 93005; 93306; 96372; G0378